=== PATIENT | male | born 1945 | race Caucasian/White ===

== ENCOUNTER 2018-05-12 23:28 | Emergency (ER) | payer MEDICARE ==
[~2018-05-12] VITALS: Ht 172.7 cm; Wt 79.5 kg
[2018-05-12] MEDS ORDERED: FLUT16H NASAL (23:39)
[2018-05-12] MEDS ORDERED: LORA10TA7 PO (23:39)
[2018-05-13 00:56] LABS: MONOCYTES # (AUTO) 0.7 K/uL (0.1-1.0); NEUTROPHILS # (AUTO) 3.7 K/uL (1.8-7.7)
[2018-05-13] MEDS ORDERED: FLUTICASONE PROPIONATE 50 MCG/SPRAY 16 GM NASAL SPRAY NASAL ONE (01:00)
[2018-05-13 01:01] LABS: INR 0.9 (0.9-1.1); PROTHROMBIN TIME 9.8 SEC (9.4-11.6)
[2018-05-13 01:08] LABS: BASOPHILS % (AUTO) 0.6 % (0.0-2.0); EOSINOPHILS % (AUTO) 2.5 % (1.0-6.0); HEMATOCRIT 43.9 % (41-53); HEMOGLOBIN 15.1 g/dL (13.5-17.5); LYMPHOCYTES # (AUTO) 1.8 K/uL (1.0-4.8); MEAN CORPUSCULAR HEMOGLOBIN 32.7 pg (26.0-34.0); MEAN CORPUSCULAR HGB CONC 34.5 G/dL (31.0-37.0); MEAN CORPUSCULAR VOLUME 95 fL (80-100); NEUTROPHILS % (AUTO) 57.9 % (40.0-70.0); PLATELET COUNT (AUTO) 183 K/uL (150-450); RED BLOOD CELL COUNT(AUTO) 4.63 MIL/uL (4.50-5.90); RED CELL DISTRIBUTION WIDTH 12.8 % (11.5-14.5)
[2018-05-13 01:21] LABS: ANION GAP 7 mmol/L (8-16); CARBON DIOXIDE 27 mmol/L (22-29); CHLORIDE 106 mmol/L (98-107); CREATININE 0.86 mg/dL (0.60-1.30); GLUCOSE,RANDOM 104 mg/dL (70-110); POTASSIUM 4.4 mmol/L (3.5-5.1); SODIUM SERUM 140 mmol/L (136-145); UREA NITROGEN, BLOOD 11 mg/dL (7-18)
[2018-05-13 01:26] LABS: GLOMERULAR FILTR. RATE CALC > 60 mL/min (>60)
[2018-05-13 01:47] LABS: ALANINE AMINOTRANSFERASE 29 U/L (12-78); ALBUMIN 3.9 g/dL (3.4-5.0); ALKALINE PHOSPHATASE 75 U/L (46-116); ASPARTATE AMINOTRANSFERASE 24 U/L (15-37); BILIRUBIN,TOTAL 0.6 mg/dL (0.1-1.0); CREATINE KINASE MB 0.7 ng/mL (0-5); CREATINE KINASE, TOTAL 96 U/L (39-308); TOTAL PROTEIN, SERUM 7.6 g/dL (6.4-8.2)
[2018-05-13 02:49] LABS: APPEARANCE,URINE CLOUDY (CLEAR); BILIRUBIN,URINE NEGATIVE (NEGATIVE); GLUCOSE, URINE (UA) NEGATIVE (NEGATIVE); KETONES,URINE NEGATIVE (NEGATIVE); LEUKOCYTE ESTERASE ,URINE NEGATIVE (NEGATIVE); NITRATE,URINE NEGATIVE (NEGATIVE); OCCULT BLOOD,URINE NEGATIVE (NEGATIVE); PROTEIN,URINE TRACE (NEGATIVE); UROBILINOGEN,URINE 0.2 mg/dL (<=1.0)
[2018-05-13 05:20] VITALS: BP 119/75
== END 2018-05-13 05:36 | disposition home or self-care (01) ==
LOC: EMS 23:29
DX: R07.9 Chest pain, unspecified (principal); R05 Cough
CPT/HCPCS: 93005; 99285

== ENCOUNTER 2019-05-13 19:12 | Emergency (ER) | payer MEDICARE, OTHER ==
[~2019-05-13] VITALS: Ht 172.7 cm; Wt 75.0 kg
[~2019-05-13 19:12] MED LIST: FLUT16H NASAL; LORA10TA7 PO
[2019-05-13 20:07] LABS: APPEARANCE,URINE CLOUDY (CLEAR); BILIRUBIN,URINE NEGATIVE (NEGATIVE); GLUCOSE, URINE (UA) NEGATIVE (NEGATIVE); KETONES,URINE NEGATIVE (NEGATIVE); LEUKOCYTE ESTERASE ,URINE LARGE (NEGATIVE); NITRATE,URINE NEGATIVE (NEGATIVE); OCCULT BLOOD,URINE SMALL (NEGATIVE); PROTEIN,URINE POS 1+ (NEGATIVE); UROBILINOGEN,URINE 0.2 mg/dL (<=1.0)
[2019-05-13 20:18] LABS: BACTERIA,URINE Many /HPF (None Seen); WBC,URINE >100 /HPF (0-5)
[2019-05-13 20:20] LABS: RBC,URINE 0-2 /HPF (0-2); SQUAMOUS EPITHELIAL CELL,UR Few /LPF (None Seen)
[2019-05-13] MEDS ORDERED: HYDROCODONE/ACETAMINOPHEN 5-325 MG TABLET PO ONE (21:00)
[2019-05-13] MEDS ORDERED: KETOROLAC TROMETHAMINE 30 MG/ML VIAL IVP ONE (21:00)
[2019-05-13] MEDS ORDERED: CefTRIAXone 1 GM/DEXTROSE 50 ML IV ONE (21:00)
[2019-05-13] MEDS ORDERED: LEVOFLOXACIN 500 MG/D5% WATER 100 ML IV ONE (21:00)
[2019-05-13 22:40] VITALS: BP 122/74
== END 2019-05-13 22:55 | disposition home or self-care (01) ==
LOC: EMS 19:13
DX: N45.1 Epididymitis (principal); Z86.19 Personal history of other infectious and parasitic diseases
CPT/HCPCS: 76870; 81001; 87086; 96365; 96368; 96375; 99284; J0696; J1885; J1956

== ENCOUNTER 2020-04-28 16:46 | Emergency (ER) | payer MEDICARE, OTHER ==
[~2020-04-28] VITALS: Ht 172.7 cm; Wt 77.3 kg
[2020-04-28] MEDS ORDERED: ONDANSETRON HCL 4 MG/2 ML VIAL IVP ONE (17:45)
[2020-04-28 17:53] LABS: BASOPHILS % (AUTO) 0.5 % (0.0-2.0); EOSINOPHILS % (AUTO) 0.4 % (1.0-6.0); HEMATOCRIT 40.9 % (41-53); HEMOGLOBIN 13.9 g/dL (13.5-17.5); LYMPHOCYTES # (AUTO) 0.5 K/uL (1.0-4.8); LYMPHOCYTES % (AUTO) 10.6 % (22.0-44.0); MEAN CORPUSCULAR HEMOGLOBIN 32.9 pg (26.0-34.0); MEAN CORPUSCULAR HGB CONC 34.1 G/dL (31.0-37.0); MEAN CORPUSCULAR VOLUME 97 fL (80-100); MONOCYTES # (AUTO) 0.3 K/uL (0.1-1.0); MONOCYTES % (AUTO) 6.4 % (2.0-9.0); NEUTROPHILS # (AUTO) 4.1 K/uL (1.8-7.7); NEUTROPHILS % (AUTO) 82.1 % (40.0-70.0); PLATELET COUNT (AUTO) 159 K/uL (150-450); RED BLOOD CELL COUNT(AUTO) 4.23 MIL/uL (4.50-5.90); RED CELL DISTRIBUTION WIDTH 12.2 % (11.5-14.5)
[2020-04-28 18:06] LABS: ANION GAP 6 mmol/L (8-16); CALCIUM, TOTAL 9.1 mg/dL (8.8-10.5); CARBON DIOXIDE 28 mmol/L (22-29); CHLORIDE 103 mmol/L (98-107); CREATININE 1.02 mg/dL (0.60-1.30); GLUCOSE,RANDOM 140 mg/dL (70-110); POTASSIUM 4.2 mmol/L (3.5-5.1); SODIUM SERUM 137 mmol/L (136-145); UREA NITROGEN, BLOOD 11 mg/dL (7-18)
[2020-04-28 18:07] LABS: GLOMERULAR FILTR. RATE CALC > 60 mL/min (>60)
[2020-04-28 18:12] LABS: ALANINE AMINOTRANSFERASE 26 U/L (12-78); ALBUMIN 3.7 g/dL (3.4-5.0); ALKALINE PHOSPHATASE 70 U/L (46-116); ASPARTATE AMINOTRANSFERASE 18 U/L (15-37); BILIRUBIN,TOTAL 0.4 mg/dL (0.1-1.0); LIPASE 95 U/L (73-393); TOTAL PROTEIN, SERUM 7.3 g/dL (6.4-8.2)
[2020-04-28 19:36] VITALS: BP 138/85
== END 2020-04-28 20:22 | disposition home or self-care (01) ==
LOC: EMS 16:49
DX: R11.2 Nausea with vomiting, unspecified (principal); R42 Dizziness and giddiness
CPT/HCPCS: 36415; 71045; 80053; 83690; 84484; 85025; 93005; 96374; 99285; J2405

== ENCOUNTER → 2020-05-02 | Emergency (ER) | payer MEDICARE ==
[~2020-05-02] VITALS: Ht 170.2 cm; Wt 77.3 kg
[~2020-05-02] MED LIST changes: +CYCLOBENZAPRINE HCL 10 MG TABLET PO ONE; -FLUT16H NASAL; +KETOROLAC TROMETHAMINE 60 MG/2 ML VIAL IM ONE; -LORA10TA7 PO
[2020-05-02 03:05] LABS: BASOPHILS % (AUTO) 0.7 % (0.0-2.0); HEMATOCRIT 39.9 % (41-53); HEMOGLOBIN 13.6 g/dL (13.5-17.5); LYMPHOCYTES # (AUTO) 1.2 K/uL (1.0-4.8); LYMPHOCYTES % (AUTO) 27.3 % (22.0-44.0); MEAN CORPUSCULAR HEMOGLOBIN 33.2 pg (26.0-34.0); MEAN CORPUSCULAR HGB CONC 34.2 G/dL (31.0-37.0); MEAN CORPUSCULAR VOLUME 97 fL (80-100); MONOCYTES # (AUTO) 0.5 K/uL (0.1-1.0); MONOCYTES % (AUTO) 12.2 % (2.0-9.0); NEUTROPHILS # (AUTO) 2.6 K/uL (1.8-7.7); NEUTROPHILS % (AUTO) 57.8 % (40.0-70.0); PLATELET COUNT (AUTO) 171 K/uL (150-450); RED BLOOD CELL COUNT(AUTO) 4.11 MIL/uL (4.50-5.90); RED CELL DISTRIBUTION WIDTH 12.5 % (11.5-14.5)
[2020-05-02 03:14] LABS: CALCIUM, TOTAL 9.2 mg/dL (8.8-10.5); CREATININE 1.2 mg/dL (0.60-1.30); POTASSIUM 4.7 mmol/L (3.5-5.1)
[2020-05-02 03:20] LABS: ALBUMIN 3.6 g/dL (3.4-5.0); BILIRUBIN,TOTAL 0.6 mg/dL (0.1-1.0); TOTAL PROTEIN, SERUM 7.1 g/dL (6.4-8.2)
[2020-05-02 04:00] VITALS: BP 114/70
== END | disposition home or self-care (01) ==
LOC: EMS 01:14
DX: R25.2 Cramp and spasm (principal)

== ENCOUNTER 2020-11-15 02:33 | Emergency (ER) | payer MEDICARE ==
[~2020-11-15] VITALS: Ht 172.7 cm; Wt 88.2 kg
[2020-11-15] MEDS ORDERED: KETOROLAC TROMETHAMINE 30 MG/ML VIAL IVP ONE (03:30)
[2020-11-15] MEDS ORDERED: ACETAMINOPHEN 500 MG TABLET PO ONE (03:30)
[2020-11-15] MEDS ORDERED: SODIUM CHLORIDE 0.9% 1,000 ML IV ONE (03:30)
[2020-11-15 03:49] LABS: HEMATOCRIT 39.6 % (41-53); HEMOGLOBIN 13.6 g/dL (13.5-17.5); MEAN CORPUSCULAR HEMOGLOBIN 33.2 pg (26.0-34.0); MEAN CORPUSCULAR HGB CONC 34.4 G/dL (31.0-37.0); MEAN CORPUSCULAR VOLUME 96 fL (80-100); PLATELET COUNT (AUTO) 148 K/uL (150-450); RED BLOOD CELL COUNT(AUTO) 4.11 MIL/uL (4.50-5.90); RED CELL DISTRIBUTION WIDTH 12.9 % (11.5-14.5)
[2020-11-15 04:01] LABS: ANION GAP 11 mmol/L (8-16); CALCIUM, TOTAL 8.9 mg/dL (8.8-10.5); CARBON DIOXIDE 25 mmol/L (22-29); CHLORIDE 101 mmol/L (98-107); CREATININE 1.16 mg/dL (0.60-1.30); GLUCOSE,RANDOM 133 mg/dL (70-110); POTASSIUM 4.2 mmol/L (3.5-5.1); SODIUM SERUM 137 mmol/L (136-145); UREA NITROGEN, BLOOD 15 mg/dL (7-18)
[2020-11-15 04:02] LABS: GLOMERULAR FILTR. RATE CALC > 60 mL/min (>60)
[2020-11-15 04:08] LABS: ALANINE AMINOTRANSFERASE 27 U/L (12-78); ALBUMIN 3.8 g/dL (3.4-5.0); ALKALINE PHOSPHATASE 56 U/L (46-116); ASPARTATE AMINOTRANSFERASE 23 U/L (15-37); TOTAL PROTEIN, SERUM 7.7 g/dL (6.4-8.2)
[2020-11-15 04:10] LABS: LACTIC ACID 1.4 mmol/L (0.4-2.0)
[2020-11-15 04:34] LABS: BAND NEUTROPHILS % (MANUAL) 14 % (0-5); BASOPHILS % (MANUAL) 1 % (0-2); LYMPHOCYTES % (MANUAL) 3 % (22-44); MONOCYTES % (MANUAL) 6 % (2-9); SEGMENTED NEUTROPHILS % 76 % (40-70)
[2020-11-15 04:35] LABS: TROPONIN I < 0.02 ng/mL (0.00-0.05)
[2020-11-15 04:43] LABS: COVID AG,FIA SOURCE NASAL SWAB
[2020-11-15 04:44] LABS: AMMONIA < 10 umol/L (11-32)
[2020-11-15 05:30] VITALS: BP 120/79
== END 2020-11-15 06:03 | disposition home or self-care (01) ==
LOC: EMS 02:35
DX: R42 Dizziness and giddiness (principal); R53.1 Weakness; R35.0 Frequency of micturition; Z20.822 Contact with and (suspected) exposure to COVID-19
CPT/HCPCS: 36415; 80053; 82140; 83605; 84484; 85025; 87426; 93005; 96361; 96374; 99284; G0480; J1885; J7030

== ENCOUNTER 2020-11-29 05:49 | Emergency (ER) | payer MEDICARE ==
[~2020-11-29] VITALS: Ht 172.7 cm; Wt 77.3 kg
[2020-11-29] MEDS ORDERED: TAMS-13 PO (06:12)
[2020-11-29] MEDS ORDERED: CYCLOBENZAPRINE HCL 10 MG TABLET PO ONE (06:45)
[2020-11-29] MEDS ORDERED: IBUPROFEN 600 MG TABLET PO ONE (06:45)
[2020-11-29 06:55] LABS: BASOPHILS % (AUTO) 0.3 % (0.0-2.0); EOSINOPHILS % (AUTO) 0.2 % (1.0-6.0); HEMATOCRIT 38.5 % (41-53); HEMOGLOBIN 13.4 g/dL (13.5-17.5); LYMPHOCYTES % (AUTO) 11.2 % (22.0-44.0); MEAN CORPUSCULAR HEMOGLOBIN 33.6 pg (26.0-34.0); MEAN CORPUSCULAR HGB CONC 34.7 G/dL (31.0-37.0); MEAN CORPUSCULAR VOLUME 97 fL (80-100); MONOCYTES # (AUTO) 1.3 K/uL (0.1-1.0); MONOCYTES % (AUTO) 13.9 % (2.0-9.0); NEUTROPHILS # (AUTO) 6.8 K/uL (1.8-7.7); NEUTROPHILS % (AUTO) 74.4 % (40.0-70.0); PLATELET COUNT (AUTO) 297 K/uL (150-450); RED BLOOD CELL COUNT(AUTO) 3.98 MIL/uL (4.50-5.90); RED CELL DISTRIBUTION WIDTH 12.3 % (11.5-14.5)
[2020-11-29 07:10] LABS: CALCIUM, TOTAL 9.6 mg/dL (8.8-10.5); CREATININE 1.26 mg/dL (0.60-1.30); POTASSIUM 4.6 mmol/L (3.5-5.1)
[2020-11-29 07:55] VITALS: BP 118/78
== END 2020-11-29 07:56 | disposition home or self-care (01) ==
LOC: EMS 05:54
DX: R07.89 Other chest pain (principal); M62.838 Other muscle spasm; M54.2 Cervicalgia
CPT/HCPCS: 93005; 99285; 36415-L1; 36415-TC; 71045-TC

== ENCOUNTER 2021-12-10 19:26 | Emergency (ER) | payer MEDICARE ==
[~2021-12-10] VITALS: Ht 172.7 cm; Wt 77.3 kg
[~2021-12-10 19:26] MED LIST changes: -CYCLOBENZAPRINE HCL 10 MG TABLET PO ONE; -KETOROLAC TROMETHAMINE 60 MG/2 ML VIAL IM ONE; +TAMS-13 PO
[2021-12-10 22:22] VITALS: BP 134/71
== END 2021-12-10 22:34 | disposition home or self-care (01) ==
LOC: EMS 19:26
DX: R25.2 Cramp and spasm (principal); Z79.899 Other long term (current) drug therapy
CPT/HCPCS: 99281; Z7502

== ENCOUNTER 2022-05-04 21:14 | Emergency (ER) | payer MEDICARE ==
[~2022-05-04] VITALS: Ht 172.7 cm; Wt 77.3 kg
[2022-05-04 23:14] VITALS: BP 111/71
[2022-05-05] MEDS ORDERED: IBUP-2071 PO (01:57)
== END 2022-05-05 02:15 | disposition home or self-care (01) ==
LOC: EMS 21:15
DX: R25.2 Cramp and spasm (principal); Z79.899 Other long term (current) drug therapy
CPT/HCPCS: 73552; 99283

== ENCOUNTER 2022-07-25 12:41 | Emergency (ER) | payer MEDICARE ==
[~2022-07-25] VITALS: Ht 170.2 cm; Wt 65.9 kg
[~2022-07-25 12:41] MED LIST changes: +IBUP-2071 PO
[2022-07-25 12:49] VITALS: BP 136/103
== END 2022-07-25 16:10 | disposition home or self-care (01) ==
LOC: EMS 12:41
DX: T40.994A Poisoning by other psychodysleptics [hallucinogens], undetermined, initial encounter (principal); Y92.89 Other specified places as the place of occurrence of the external cause
CPT/HCPCS: 99281; Z7502